=== PATIENT | male | born 1980 | race Caucasian/White ===

== ENCOUNTER 2023-04-16 21:57 | Emergency (ER) | payer MEDICAID ==
[~2023-04-16] VITALS: Ht 177.8 cm; Wt 75.9 kg
[2023-04-17] MEDS ORDERED: LIDOCAINE 1%/EPI 1:100,000 inj. 10 ML multi-dose vial IJ ONE (00:30)
--- NOTE | 2023-04-17 01:04 | NUR ---
DR LUX PERFORMED THORACENTESIS. 2L FLUID REMOVED. PT TOLERATED PROCEDURE WELL.
[2023-04-17 01:34] VITALS: BP 114/77; PULSE 102; RESP 16; O2SAT 94
[2023-04-17 01:44] VITALS: TEMP 99.3
== END 2023-04-17 01:48 | disposition home or self-care (01) ==
LOC: ER 21:58
DX: J90 Pleural effusion, not elsewhere classified (principal); D09.19 Carcinoma in situ of other urinary organs; Z88.0 Allergy status to penicillin
CPT/HCPCS: 32554; 71045; 99285

== ENCOUNTER 2023-04-22 00:52 | Emergency (ER) | payer MEDICAID ==
[~2023-04-22] VITALS: Ht 177.8 cm; Wt 75.7 kg
[2023-04-22 01:02] VITALS: TEMP 98.4
[2023-04-22 04:30] VITALS: BP 121/75; PULSE 101; RESP 16; O2SAT 94
== END 2023-04-22 05:06 | disposition home or self-care (01) ==
LOC: ER 00:54
DX: J90 Pleural effusion, not elsewhere classified (principal); C64.9 Malignant neoplasm of unspecified kidney, except renal pelvis; Z88.0 Allergy status to penicillin
CPT/HCPCS: 32554; 71046; 99285; A6449

== ENCOUNTER 2023-04-26 19:22 | Emergency (ER) | payer MEDICAID ==
[~2023-04-26] VITALS: Ht 177.8 cm; Wt 75.8 kg
[2023-04-26 19:40] LABS: EOSINOPHILS # (AUTO) 0.1 X10'3 (0-0.9); HEMOGLOBIN 10.9 g/dl (14.0-17.9); LYMPHOCYTES # (AUTO) 0.7 X10'3 (1.1-4.8)
[2023-04-26 19:41] LABS: BASOPHILS % (AUTO) 0.7 % (0-1); EOSINOPHILS % (AUTO) 1.6 % (0-6); HEMATOCRIT 34.5 % (42.0-52.0); LYMPHOCYTES % (AUTO) 12.2 % (21-51); MEAN CORPUSCULAR HEMOGLOBIN 24.8 PG (27.0-31.0); MEAN CORPUSCULAR HGB CONC 31.6 g/dL (33.0-36.5); MEAN CORPUSCULAR VOLUME 78.3 FL (78-98); MEAN PLATELET VOLUME 5.8 FL (7.4-10.4); MONOCYTES # (AUTO) 0.6 X10'3 (0-0.9); MONOCYTES % (AUTO) 10.5 % (2-12); NEUTROPHILS # (AUTO) 4.1 X10'3 (1.8-7.7); PLATELET COUNT 639 X10'3 (140-440); RED BLOOD COUNT 4.41 X10'6 (4.70-6.10); WHITE BLOOD COUNT 5.5 X10'3 (4.5-11.0)
[2023-04-26 19:53] LABS: ALANINE AMINOTRANSFERASE 23 U/L (12-78); ALBUMIN 1.9 G/DL (3.4-5.0); ALBUMIN/GLOBULIN RATIO 0.4 (1.1-1.5); ALKALINE PHOSPHATASE 167 IU/L (46-116); ANION GAP 7 (8-16); ASPARTATE AMINO TRANSFERASE 24 U/L (10-37); BILIRUBIN,TOTAL 0.2 MG/DL (0.1-1.0); BLOOD UREA NITROGEN 9 MG/DL (7-18); CALCIUM 9.9 MG/DL (8.5-10.1); CHLORIDE 95 MMOL/L (99-107); CREATININE 0.82 MG/DL (0.60-1.10); GLUCOSE 87 MG/DL (70-104); POTASSIUM 3.9 MMOL/L (3.5-5.1); SODIUM 127 MMOL/L (135-145); TOTAL PROTEIN 6.8 G/DL (6.4-8.2); eCRCL 117 ML/MIN; eGFR > 90 ML/MIN
[2023-04-26 20:02] LABS: PRO BRAIN NATRIURETIC PEPTIDE 89 PG/ML (0-125)
[2023-04-26 21:50] LABS: ANISOCYTOSIS 1+; ELLIPTOCYTES FEW; MICROCYTOSIS 1+; PLATELET ESTIMATE INCREASED; POLYCHROMASIA FEW; SCHISTOCYTES FEW
[2023-04-27 02:29] VITALS: BP 108/78; PULSE 99; RESP 18; TEMP 98.8; O2SAT 99
== END 2023-04-27 02:33 | disposition home or self-care (01) ==
LOC: ER 19:23
DX: J90 Pleural effusion, not elsewhere classified (principal); Z85.9 Personal history of malignant neoplasm, unspecified; Z98.890 Other specified postprocedural states; Z85.05 Personal history of malignant neoplasm of liver
CPT/HCPCS: 36415; 71045; 80053; 83880; 84484; 85008; 85025; 93005; 99285